=== PATIENT | female | born 1940 | race Caucasian/White ===

== ENCOUNTER 2019-05-25 07:19 | Emergency (ER) | payer OTHER ==
[~2019-05-25] VITALS: Ht 162.6 cm; Wt 69.0 kg
[2019-05-25] MEDS ORDERED: HIGH BP MED (07:30)
[2019-05-25] MEDS ORDERED: SYNTHROID50 MCG PO (07:30)
[2019-05-25 08:40] VITALS: BP 104/67
== END 2019-05-25 08:41 | disposition home or self-care (01) ==
LOC: M.ERS 07:19
DX: R13.10 Dysphagia, unspecified (principal); I10 Essential (primary) hypertension; E78.00 Pure hypercholesterolemia, unspecified; E03.9 Hypothyroidism, unspecified; Z90.710 Acquired absence of both cervix and uterus

== ENCOUNTER 2019-11-04 10:49 | Emergency (ER) | payer OTHER ==
[~2019-11-04] VITALS: Ht 165.1 cm; Wt 65.8 kg
[~2019-11-04 10:49] MED LIST: HIGH BP MED; SYNTHROID50 MCG PO
[2019-11-04] MEDS ORDERED: DICYCLOMINE HCL20 MG PO (11:07)
[2019-11-04 11:56] VITALS: BP 154/69
== END 2019-11-04 11:57 | disposition home or self-care (01) ==
LOC: M.ERS 10:49
DX: K58.9 Irritable bowel syndrome, unspecified (principal); Z20.828 Contact with and (suspected) exposure to other viral communicable diseases; I10 Essential (primary) hypertension; E78.00 Pure hypercholesterolemia, unspecified; Z88.5 Allergy status to narcotic agent; Z88.1 Allergy status to other antibiotic agents; Z79.899 Other long term (current) drug therapy; Z90.710 Acquired absence of both cervix and uterus